=== PATIENT | female | born 1985 | race Caucasian/White ===

== ENCOUNTER 2024-05-12 10:07 | Emergency (ER) | payer BC ==
[2024-05-12 10:15] VITALS: TEMP 97.9
--- NOTE | 2024-05-12 10:36 | ED ---
General Adult HPI - General Chief complaint: Vaginal Bleeding Stated complaint: Vaginal bleeding-8/9 weeks preg Time Seen by Provider: 05/12/24 10:17 Source: patient, RN notes reviewed Mode of arrival: ambulatory Limitations: no limitations - History of Present Illness Initial comments: 38-year-old female presents emergency department with chief complaint of vaginal bleeding early . Patient is G2, approximately 8 to 9 weeks . Patient states that she has some brown to bloody discharge last night but woke up with more spotting today bright red. She has no abdominal pain or cramping. Denies any trauma. Patient states that she had no bleeding with her prior she does not remember receiving RhoGAM before. Patient has no dysuria. - Related Data Allergies Allergy/AdvReac Type Severity Reaction Status Date / Time No Known Allergies Allergy Verified 05/12/24 10:15 Review of Systems ROS Statement: Those systems with pertinent positive or pertinent negative responses have been documented in the HPI. ROS Other: All systems not noted in ROS Statement are negative. Past Medical History Past Medical History: No Reported History Past Surgical History: Section Smoking Status: Current every day smoker General Exam Limitations: no limitations General appearance: alert, in no apparent distress Head exam: Present: atraumatic, normocephalic, normal inspection Eye exam: Present: normal appearance, PERRL, EOMI. Absent: scleral icterus, conjunctival injection, periorbital swelling ENT exam: Present: normal exam, normal oropharynx, mucous membranes moist Neck exam: Present: normal inspection, full ROM. Absent: tenderness, meningismu s, lymphadenopathy Respiratory exam: Present: normal lung sounds bilaterally. Absent: respiratory distress, wheezes, rales, rhonchi, stridor Cardiovascular Exam: Present: regular rate, normal rhythm, normal heart sounds. Absent: systolic murmur, diastolic murmur, rubs, gallop, clicks GI/Abdominal exam: Present: soft, normal bowel sounds. Absent: distended, tenderness, guarding, rebound, rigid Back exam: Absent: CVA tenderness (R), CVA tenderness (L) Course Vital Signs 05/12/24 05/12/24 10:12 12:10 Temperature 97.9 F Pulse Rate 66 69 Respiratory 16 18 Rate Blood Pressure 134/82 110/74 O2 Sat by Pulse 98 97 Oximetry Medical Decision Making - Medical Decision Making Was pt. sent in by a medical professional or institution (NESSA Rothman, MANAGER ASSET MANAGEMENT, urgent care, hospital, or longterm...) When possible be specific @ -No Did you speak to anyone other than the patient for history (EMS, parent, family, police, friend...)? What history was obtained from this source @ -No Did you review nursing and triage notes (agree or disagree)? Why? @ -I reviewed and agree with nursing and triage notes Were old charts reviewed (outside hosp., previous admission, EMS record, old EKG, old radiological studies, urgent care reports/EKG's, longterm records)? Report findings @ -No old charts were reviewed Differential Diagnosis (chest pain, altered mental status, abdominal pain women, abdominal pain men, vaginal bleeding, weakness, fever, dyspnea, syncope, headache, dizziness, GI bleed, back pain, seizure, CVA, palpatations, mental health, musculoskeletal)? @ -Differential Vaginal Bleeding: Spontaneous , threatened , molar , ectopic , bloody show, incompetent cervix, abruptioplacenta, placenta previa, uterine rupture, dysfunctional uterine bleeding, hemorrhage, uterine fibroids, this is not meant to be an all-inclusive list. EKG interpreted by me (3pts min.). @ -None X-rays interpreted by me (1pt min.). @ -None done CT interpreted by me (1pt min.). @ -None done U/S interpreted by me (1pt. min.). @ -Ultrasound OB transvaginal shows no IUP considered miscarriage or blighted ovum What testing was considered but not performed or refused? (CT, X-rays, U/S, labs)? Why? @ -None What meds were considered but not given or refused? Why? @ -None Did you discuss the management of the patient with other professionals (professionals i.e. NESSA Rothman, MANAGER ASSET MANAGEMENT, lab, RT, psych nurse, clinical social work therapist, client architect, teacher, strategic intelligence officer, rn case manager hospice)? Give summary @ -No Was smoking cessation discussed for >3mins.? @ -No Was critical care preformed (if so, how long)? @ -No Were there social determinants of health that impacted care today? How? (Homelessness, low income, unemployed, alcoholism, drug addiction, transportation, low edu. Level, literacy, decrease access to med. care, detention, rehab)? @ -No Was there de-escalation of care discussed even if they declined (Discuss DNR or withdrawal of care, Hospice)? DNR status @ -No What co-morbidities impacted this encounter? (DM, HTN, Smoking, COPD, CAD, Cancer, CVA, ARF, Chemo, Hep., AIDS, mental health diagnosis, sleep apnea, morbid obesity)? @ -None Was patient admitted / discharged? Hospital course, mention meds given and route, prescriptions, significant lab abnormalities, going to OR and other pertinent info. @ -Discharge patient presented for vaginal bleeding in early . Patient may be earlier than expected versus threatened miscarriage felt possibly to be ectopic though still concerned as patient has no abdominal pain she was advised to return for any pain in her abdomen, cramping or worsening bleeding. Undiagnosed new problem with uncertain prognosis? @ -No Drug Therapy requiring intensive monitoring for toxicity (Heparin, Nitro, Insulin, Cardizem)? @ -No Were any procedures done? @ -No Diagnosis/symptom? @Threatened miscarriage Acute, or Chronic, or Acute on Chronic? @ -Acute Uncomplicated (without systemic symptoms) or Complicated (systemic symptoms)? @ -Uncomplicated Side effects of treatment? @ -No Exacerbation, Progression, or Severe Exacerbation? @ -No Poses a threat to life or bodily function? How? (Chest pain, [place], [place], pneumonia, PE, COPD, DKA, ARF, appy, cholecystitis, CVA, Diverticulitis, Homicidal, Suicidal, threat to staff... and all critical care pts) @ -No - Lab Data Result diagrams: 05/12/24 10:45 05/12/24 10:45 Lab Results 05/12/24 05/12/24 05/12/24 Range/Units 10:37 10:45 10:45 WBC 7.1 (3.8-10.6) k/uL RBC 4.81 (3.80-5.40) m/uL Hgb 13.9 (11.4-16.0) gm/dL Hct 43.4 (34.0-46.0) % MCV 90.2 (80.0-100.0) fL MCH 28.8 (25.0-35.0) pg MCHC 32.0 (31.0-37.0) g/dL RDW 15.8 H (11.5-15.5) % Plt Count 203 (150-450) k/uL MPV 8.6 Neutrophils % 70 % Lymphocytes % 19 % Monocytes % 5 % Eosinophils % 3 % Basophils % 0 % Neutrophils # 5.0 (1.3-7.7) k/uL Lymphocytes # 1.4 (1.0-4.8) k/uL Monocytes # 0.4 (0-1.0) k/uL Eosinophils # 0.2 (0-0.7) k/uL Basophils # 0.0 (0-0.2) k/uL Sodium 139 (137-145) mmol/L Potassium 4.2 (3.5-5.1) mmol/L Chloride 109 H (98-107) mmol/L Carbon Dioxide 22 (22-30) mmol/L Anion Gap 8 mmol/L BUN 12 (7-17) mg/dL Creatinine 0.64 (0.52-1.04) mg/dL Est GFR (CKD-EPI)AfAm >90 (>60 ml/min/1.73 sqM) Est GFR (CKD-EPI)NonAf >90 (>60 ml/min/1.73 sqM) Glucose 87 (74-99) mg/dL Calcium 9.0 (8.4-10.2) mg/dL HCG, Quant 80897.2 mIU/mL Urine Color Colorless Urine Appearance Clear (Clear) Urine pH 6.5 (5.0-8.0) Ur Specific [place] 1.003 (1.001-1.035) Urine Protein Negative (Negative) Urine Glucose (UA) Negative (Negative) Urine Ketones Negative (Negative) Urine Blood Moderate H (Negative) Urine Nitrite Negative (Negative) Urine Bilirubin Negative (Negative) Urine Urobilinogen <2.0 (<2.0) mg/dL Ur Leukocyte Esterase Negative (Negative) Urine RBC 1 (0-5) /hpf Urine WBC 1 (0-5) /hpf Ur Squamous Epith Cells <1 (0-4) /hpf Urine Bacteria Rare H (None) /hpf Blood Type Blood Type Recheck Bld Type Recheck Status 05/12/24 Range/Units 10:45 WBC (3.8-10.6) k/uL RBC (3.80-5.40) m/uL Hgb (11.4-16.0) gm/dL Hct (34.0-46.0) % MCV (80.0-100.0) fL MCH (25.0-35.0) pg MCHC (31.0-37.0) g/dL RDW (11.5-15.5) % Plt Count (150-450) k/uL MPV Neutrophils % % Lymphocytes % % Monocytes % % Eosinophils % % Basophils % % Neutrophils # (1.3-7.7) k/uL Lymphocytes # (1.0-4.8) k/uL Monocytes # (0-1.0) k/uL Eosinophils # (0-0.7) k/uL Basophils # (0-0.2) k/uL Sodium (137-145) mmol/L Potassium (3.5-5.1) mmol/L Chloride (98-107) mmol/L Carbon Dioxide (22-30) mmol/L Anion Gap mmol/L BUN (7-17) mg/dL Creatinine (0.52-1.04) mg/dL Est GFR (CKD-EPI)AfAm (>60 ml/min/1.73 sqM) Est GFR (CKD-EPI)NonAf (>60 ml/min/1.73 sqM) Glucose (74-99) mg/dL Calcium (8.4-10.2) mg/dL HCG, Quant mIU/mL Urine Color Urine Appearance (Clear) Urine pH (5.0-8.0) Ur Specific [place] (1.001-1.035) Urine Protein (Negative) Urine Glucose (UA) (Negative) Urine Ketones (Negative) Urine Blood (Negative) Urine Nitrite (Negative) Urine Bilirubin (Negative) Urine Urobilinogen (<2.0) mg/dL Ur Leukocyte Esterase (Negative) Urine RBC (0-5) /hpf Urine WBC (0-5) /hpf Ur Squamous Epith Cells (0-4) /hpf Urine Bacteria (None) /hpf Blood Type A Positive Blood Type Recheck No Previous Record Bld Type Recheck Status [facility] ONLY Disposition Clinical Impression: Threatened miscarriage in early Disposition: HOME SELF-CARE Instructions (If sedation given, give patient instructions): Threatened Miscarriage (ED) Additional Instructions: Please return to the Emergency Department if symptoms worsen or any other concerns. Is patient prescribed a controlled substance at d/c from ED?: No Referrals: Paola Pate DO [Primary Care Provider] - 1-2 days Time of Disposition: 12:24
[2024-05-12 10:54] LABS: Basophils % (A) 0 %; Eosinophils # (A) 0.2 k/uL (0-0.7); Eosinophils % (A) 3 %; HCT 43.4 % (34.0-46.0); HGB 13.9 gm/dL (11.4-16.0); Lymphocytes # (A) 1.4 k/uL (1.0-4.8); Lymphocytes % (A) 19 %; MCH 28.8 pg (25.0-35.0); MCV 90.2 fL (80.0-100.0); Mean Platelet Volume 8.6; Monocytes # (A) 0.4 k/uL (0-1.0); Monocytes % (A) 5 %; Neutrophils % (A) 70 %; Platelet Count 203 k/uL (150-450); RBC 4.81 m/uL (3.80-5.40); RDW 15.8 % (11.5-15.5); WBC 7.1 k/uL (3.8-10.6)
[2024-05-12 11:02] LABS: African American GFR (CKD) >90 (>60 ml/min/1.73 sqM); Anion Gap 8 mmol/L; Blood Urea Nitrogen 12 mg/dL (7-17); Carbon Dioxide 22 mmol/L (22-30); Chloride 109 mmol/L (98-107); Glucose 87 mg/dL (74-99); Non-African American GFR(CKD) >90 (>60 ml/min/1.73 sqM); Potassium 4.2 mmol/L (3.5-5.1); Sodium 139 mmol/L (137-145)
[2024-05-12 11:36] LABS: Appearance,Urine Clear (Clear); Bacteria,Urine Rare /hpf; Bilirubin,Urine Negative (Negative); Blood,Urine Moderate (Negative); Color,Urine Colorless; Glucose,Urine (UA) Negative (Negative); Ketones,Urine Negative (Negative); Leukocyte Esterase,Urine Negative (Negative); Nitrite,Urine Negative (Negative); PH, Urine 6.5 (5.0-8.0); Protein,Urine Negative (Negative); RBC,Urine 1 /hpf (0-5); Specific Gravity,Urine 1.003 (1.001-1.035); Squamous Epithelial Cell,Urine <1 /hpf (0-4); Urobilinogen,Urine <2.0 mg/dL (<2.0); WBC,Urine 1 /hpf (0-5)
--- NOTE | 2024-05-12 11:38 | US ---
EXAMINATION TYPE: Transabdominal DATE OF EXAM: 05/12/2024 11:24 AM COMPARISON: NONE CLINICAL INDICATION: Female, 38 years old with history of pain, bleeding; Cramping and bleeding EXAM PERFORMED: Transvaginal (TV) and Transabdominal (TA) EXAM MEASUREMENTS: GESTATIONAL AGE / DATING Physician Established: Not yet established Dates by LMP: LMP unknown Dates by First Scan: No previous this is first scan Dates by Current Scan for: MSD ( 6 weeks/3 days) EDC: 01/02/2025 MATERNAL ANATOMY Uterus: 9.7 x 5.9 x 6.9cm Right Ovary: 2.9 x 2.0 x 1.8cm Left Ovary: 3.7 x 3.2 x 2.1cm Post CDS / Adnexa: wnl Presence of free fluid: no Presence of corpus luteal cyst: not seen Presence of subchorionic bleed: no GESTATION / SURVEY MSD: 1.5cm (6 weeks/3 days) No pole or yolk sac seen at this time Date of LMP: Unknown Beta HcG (if available): Not available at time of exam IMPRESSION: 1. Findings could reflect normal early IUP versus missed spontaneous , blighted . Ec topic cannot be excluded. Correlate with serial beta hCG and/or ultrasound
[2024-05-12 11:47] LABS: HCG,Quantitative Serum 27871.2 mIU/mL
[2024-05-12 12:12] VITALS: BP 110/74; PULSE 69; RESP 18
== END 2024-05-12 12:11 | disposition home or self-care (01) ==
LOC: EC 10:07
DX: O09.91 Supervision of high risk pregnancy, unspecified, first trimester (principal); O20.0 Threatened abortion; O99.331 Smoking (tobacco) complicating pregnancy, first trimester; F17.200 Nicotine dependence, unspecified, uncomplicated; Z3A.01 Less than 8 weeks gestation of pregnancy
CPT/HCPCS: 36415; 76801; 76817; 80048; 81001; 84702; 85025; 86900; 86901; 99284

== ENCOUNTER → 2024-05-23 | Outpatient (CLI) | payer BC ==
[2024-05-23 11:37] LABS: Hypochromasia Slight; MCH 28.2 pg (25.0-35.0); MCHC 31.1 g/dL (31.0-37.0); MCV 90.6 fL (80.0-100.0); Mean Platelet Volume 8.8; Platelet Count 253 k/uL (150-450); RBC 4.97 m/uL (3.80-5.40); RDW 15.7 % (11.5-15.5); WBC 7.4 k/uL (3.8-10.6)
== END | disposition home or self-care (01) ==
LOC: LABWHC1 11:10
PROVIDERS: ATTEND Obstetrics & Gynecology
DX: O03.9 Complete or unspecified spontaneous abortion without complication (principal)
CPT/HCPCS: 36415; 84702; 85027

== ENCOUNTER 2025-05-19 03:43 | Inpatient (IN) | payer BC ==
[2025-05-19] MEDS ORDERED: OXYTOCIN 10 UNIT/ML 1 ML VIAL IM PRN (04:12)
[2025-05-19] MEDS ORDERED: CARBOPROST TROMETHAMINE 250 MCG/ML 1 ML AMP IM PRN (04:12)
[2025-05-19] MEDS ORDERED: METHYLERGONOVINE 0.2 MG/ML 1 ML AMP IM PRN (04:12)
[2025-05-19] MEDS ORDERED: TRANEXAMIC 1,000 MG/100ML-NACL 1,000 MG in EMPTY BAG 1 BAG IV PRN (04:12)
[2025-05-19] MEDS ORDERED: OXYTOCIN 30 UNITS/500 ML NS 30 UNIT in SALINE 1 500ML.BAG IV SCH (04:15)
[2025-05-19 04:33] LABS: Glucose,Whole Blood 96 mg/dL (70-110)
[2025-05-19 04:34] LABS: Basophils # (A) 0.03 10*3/uL (0.00-0.10); Basophils % (A) 0.3 %; Eosinophils # (A) 0.17 10*3/uL (0.04-0.35); Eosinophils % (A) 1.5 %; HCT 34.0 % (37.2-46.3); HGB 10.9 g/dL (12.0-15.0); Lymphocytes # (A) 1.65 10*3/uL (0.90-5.00); Lymphocytes % (A) 14.6 %; MCH 27.0 pg (27.0-32.0); MCHC 32.1 g/dL (32.0-37.0); MCV 84.2 fL (80.0-97.0); Monocytes # (A) 0.66 10*3/uL (0.20-1.00); Monocytes % (A) 5.8 %; Neutrophils # (A) 8.63 10*3/uL (1.80-7.70); Neutrophils % (A) 76.5 %; Platelet Count 195 10*3/uL (140-440); RBC 4.04 10*6/uL (4.10-5.20); RDW 14.6 % (11.5-14.5); WBC 11.29 10*3/uL (4.50-10.00)
[2025-05-19] MEDS: CITRIC ACID-SODIUM CITRATE 15 ML CUP PO ONE (04:35)
[2025-05-19] MEDS: LACTATED RINGERS 1,000 ML IV ONE (04:37)
[2025-05-19] MEDS ORDERED: ONDANSETRON 4 MG/2 ML VIAL ONE (04:48)
[2025-05-19] MEDS ORDERED: MORPHINE SULFATE (PF) 0.3 MG/0.3 ML SYR ONE (04:48)
[2025-05-19] MEDS ORDERED: ePHEDrine 50 MG/ML 1 ML VIAL ONE (04:48)
[2025-05-19] MEDS ORDERED: NALBUPHINE (ANES) 10 MG/ML - 1 ML AMP ONE (04:48)
[2025-05-19] MEDS ORDERED: OXYTOCIN 30 UNITS/500 ML NS BAG IV ONE (04:48)
--- NOTE | 2025-05-19 05:46 | P.OP ---
Date of Procedure: 05/19/25 Preoperative Diagnosis: IUP at 39 and 1 sevenths weeks, GDM, history of section x 1 desires repeat, family-planning Postoperative Diagnosis: Same Procedure(s) Performed: Repeat section with bilateral salpingectomy Anesthesia: spinal Surgeon: Teresita Alcaraz Securities Attorney #1: Amanda Villanueva Estimated Blood Loss (ml): 648 IV fluids (ml): 1,000 Urine output (ml): 200 (Yellow) Pathology: none sent Condition: stable Disposition: observation Indications for Procedure: 39-year-old G3, P1 at 39 and 1 sevenths weeks presents in active labor. Patient has a prior history of section and desires repeat. Patient desires bilateral salpingectomy as she is done with childbearing Operative Findings: Viable male delivered 512, weight of 9 pounds 2 ounces, Apgars of 8 and 9 at 1 and 5 minutes respectively Description of Procedure: The patient was prepped and draped in the usual fashion after spinal anesthesia was administered by the anesthesia department. A Pfannenstiel incision was made and extended of the abdominal cavity without difficulty. The bladder peritoneum was elevated and incised and reflected distally. A 2 cm incision was made in the transverse plane of the lower uterine segment to enter the uterus at which time clear fluid was noted. The incision was extended in both directions using the bandage scissors. The head was encountered within the field and delivered up and through the incision where the nose and mouth were thoroughly suctioned. Remainder of the was delivered onto the surgical field where the cord was doubly clamped, cut, and the was passed for resuscitative measures with weight and Apgars as noted above. The placenta was delivered manually, intact, and was grossly normal with a grossly normal three-vessel cord. The uterus was exteriorized and the interior cavity of the uterus swept of any remaining placental and membranous fragments with a laparotomy sponge. The margins of the incision were grasped with Allis clamps and the incision closed in 2 layers. First layer was a running locking layer of 0 Vicryl from margin to margin. Any small points of bleeding were then made hemostatic with the Bovie. Once hemostasis was achieved, the posterior cul-de-sac was suctioned with a guard and the uterine and ovarian findings are as noted above. The left fallopian tube was elevated and the mesosalpinx was transected up to the corneal region with the LigaSure, this was then repeated on the opposite side. Hemostasis was noted after bilateral salpingectomy was performed. The uterus was replaced within the abdominal cavity and the gutters swept of any remaining blood fluid or clot. The incision was again reexamined and hemostasis was noted to be excellent. Any small point of bleeding were made hemostatic with the Bovie. Once hemostasis was achieved the parietal peritoneum was loosely reapproximated. The layer of muscles were examined and made hemostatic with the Bovie. Attention was then turned to the fascia which was closed with 2 running stitches of 0 Vicryl proceeding from the lateral margins to the midpoint. The subcutaneous tissues were irrigated, made hemostatic with the Bovie, and reapproximated with a running stitch of 30 Vicryl. The skin was reapproximated with 4-0 Vicryl. Estimated blood loss for the case was approximately 648 mL. All sponge instrument and needle counts are correct. There were no complications. The patient tolerated the procedure well and proceeded to the recovery room in stable condition. Both mother and are resting comfortably in recovery.
[2025-05-19] MEDS ORDERED: METOCLOPRAMIDE 5 MG/ML 2 ML VIAL IVP PRN (05:53)
[2025-05-19] MEDS ORDERED: diphenhydrAMINE 25 MG CAP PO PRN (05:53)
[2025-05-19] MEDS ORDERED: diphenhydrAMINE 50 MG/ML 1 ML VIAL IVP PRN ×2 (05:53)
[2025-05-19] MEDS ORDERED: ZOLPIDEM 5 MG TAB PO PRN (05:53)
[2025-05-19] MEDS ORDERED: ONDANSETRON 4 MG/2 ML VIAL IVP PRN (05:53)
[2025-05-19] MEDS ORDERED: NALOXONE 0.4 MG/ML 1 ML VIAL IV PRN (05:53)
[2025-05-19] MEDS: ACETAMINOPHEN IV (For NPO) 1,000 MG in EMPTY BAG 1 BAG IVPB ONE (07:38)
[2025-05-19] MEDS: LACTATED RINGERS 1,000 ML IV SCH ×2 (10:16→19:35)
--- NOTE | 2025-05-19 12:56 | P.HPOB ---
History of Present Illness H&P Date: 05/19/25 Chief Complaint: IUP at 39 and 1/7 weeks,active labor, history of section x 1,GDM 39-year-old G3, P1011 at 39 and 1 sevenths weeks that presents to labor and delivery with complaints of regular painful contractions. Patient is noted to be 5 cm in OB triage. Patient has been receiving routine care which has been complicated by diagnosis of gestational diabetes, and LGA last EFW 97th percentile about 1 week ago. Patient notes good movement denies vaginal bleeding or loss of fluid. Review of Systems Constitutional: Denies chills, Denies fatigue, Denies fever Ears, nose, mouth and throat: Denies headache Cardiovascular: Reports leg edema Respiratory: Denies dyspnea Gastrointestinal: Denies nausea, Denies vomiting Genitourinary: Reports Medications and Allergies Allergies Allergy/AdvReac Type Severity Reaction Status Date / Time No Known Allergies Allergy Verified 05/19/25 03:51 Exam Osteopathic Statement: *. No significant issues noted on an osteopathic structural exam other than those noted in the History and Physical/Consult. Intake and Output 05/18/25 05/18/25 05/19/25 14:59 22:59 06:59 Other: Weight 121.563 kg Targeted physical exam is performed this date in general is a well-nourished well-developed female in no acute distress, breathing is nonlabored, abdomen is gravid, cervical exam per RN is 5/80/-1 station vertex presentation next heart tones are noted to be category 1 and she is chang every 3 to 6 minutes. Results Result Diagrams: 05/19/25 04:15 Assessment and Plan (1) Term Current Visit: Yes Status: Acute Code(s): Z34.90 - ENCNTR FOR SUPRVSN OF NORMAL , UNSP, UNSP TRIMESTER SNOMED Code(s): 73725504 (2) GDM (gestational diabetes mellitus) Current Visit: Yes Status: Acute Code(s): O24.419 - GESTATIONAL DIABETES MELLITUS IN , UNSP CONTROL SNOMED Code(s): 13370129 (3) History of section Current Visit: Yes Status: Acute Code(s): Z98.891 - HISTORY OF UTERINE SCAR FROM PREVIOUS SURGERY SNOMED Code(s): 848511627 (4) Declines (vaginal after ) trial Current Visit: Yes Status: Acute Code(s): O34.219 - MATERNAL CARE FOR UNSP TYPE SCAR FROM PREVIOUS DEL SNOMED Code(s): 455810134 Plan: Admit to labor and delivery Anesthesia to be notified Patient desires bilateral salpingectomy with repeat section Surgery is reviewed and questions were answered risks are discussed. Patient states understanding and wishes to proceed. Will proceed to operating suite
--- NOTE | 2025-05-19 15:30 | P.ANPRN ---
Procedure Note - Anesthesia - Nerve Block Performed Right Adductor Canal Infusion Time Out Performed: Yes Date of Procedure: 05/19/25 Procedure Start Time: 06:51 Procedure Stop Time: 07:01 Location of Patient: PreOp Indication: Acute Post-Operative Pain, Requested by Surgeon Sedation Type: Sedate with meaningful contact maintained Preparation: Sterile Prep, Sterile Dressing Position: Supine Catheter: Indwelling Needle Types: Pajunk Needle Gauge: 21 Ultrasound used to visualize needle placement: Yes Ultrasound used to observe medication spread: Yes Blood Aspirated: No Pain Paresthesia on Injection Noted: No Resistance on Injection: Normal Image Stored and Saved: Yes Events: Uneventful and Well Tolerated (Ropivacaine 0.5% 20 cc plus dexamethasone 4 mg)
--- NOTE | 2025-05-19 15:31 | P.ANPRN ---
Procedure Note - Anesthesia - Nerve Block Performed Right iPack Single Time Out Performed: Yes Date of Procedure: 05/19/25 Procedure Start Time: 07:02 Procedure Stop Time: 07:03 Location of Patient: PreOp Indication: Acute Post-Operative Pain, Requested by Surgeon Sedation Type: Sedate with meaningful contact maintained Preparation: Sterile Prep Position: Left Lateral Needle Types: Pajunk Needle Gauge: 21 Ultrasound used to visualize needle placement: Yes Ultrasound used to observe medication spread: Yes Blood Aspirated: No Pain Paresthesia on Injection Noted: No Resistance on Injection: Normal Image Stored and Saved: Yes Events: Uneventful and Well Tolerated (Ropivacaine 0.5% 20 cc plus dexamethasone 4 mg)
[2025-05-19] MEDS: IBUPROFEN IV 800 MG in SODIUM CHLORIDE 0.9% 250 ML IV ONE (16:19)
[2025-05-19] MEDS: SENNOSIDES-DOCUSATE SODIUM 1 EACH TAB PO SCH (19:35)
[2025-05-19] MEDS: ACETAMINOPHEN TAB 500 MG TAB PO SCH (19:35)
[2025-05-20] MEDS: IBUPROFEN 800 MG TAB PO SCH (00:10)
[2025-05-20 07:29] LABS: Basophils # (A) 0.03 10*3/uL (0.00-0.10); Basophils % (A) 0.3 %; Eosinophils # (A) 0.18 10*3/uL (0.04-0.35); Eosinophils % (A) 1.8 %; HCT 31.1 % (37.2-46.3); HGB 9.8 g/dL (12.0-15.0); Lymphocytes # (A) 1.59 10*3/uL (0.90-5.00); Lymphocytes % (A) 15.8 %; MCH 26.9 pg (27.0-32.0); MCHC 31.5 g/dL (32.0-37.0); MCV 85.4 fL (80.0-97.0); Monocytes # (A) 0.51 10*3/uL (0.20-1.00); Monocytes % (A) 5.1 %; Neutrophils # (A) 7.68 10*3/uL (1.80-7.70); Neutrophils % (A) 76.2 %; Platelet Count 190 10*3/uL (140-440); RBC 3.64 10*6/uL (4.10-5.20); RDW 14.6 % (11.5-14.5); WBC 10.07 10*3/uL (4.50-10.00)
[2025-05-20] MEDS ORDERED: IBUPROFEN 800 MG TAB PO SCH (08:00)
--- NOTE | 2025-05-20 08:33 | P.PNOBGPC ---
Subjective - Subjective Principal diagnosis: Postop day 1, repeat section with bilateral salpingectomy Interval history: Patient is doing well postoperatively. She is ambulating and voiding without difficulty. She is tolerating regular diet without nausea or vomiting. States her pain is well-controlled. She denies concerns this morning. Patient reports: Reports appetite normal, Reports voiding normally, Reports pain well controlled, Reports ambulating normally [place]: doing well Objective - Vital Signs Latest vital signs: Vital Signs Temp Pulse Resp BP Pulse Ox 05/20/25 07:43 97.8 F 60 16 129/81 05/20/25 00:00 97.6 F 57 L 16 117/69 98 05/19/25 16:00 97.7 F 60 16 110/67 98 05/19/25 12:00 97.8 F 70 16 125/81 Intake and Output 05/19/25 05/20/25 05/20/25 22:59 06:59 14:59 Output Total 1700 500 Balance -1700 -500 Output: Urine 1700 500 Other: Voiding Method Indwelling Catheter Toilet - Exam Extremities: Present: normal, edema Abdomen: Present: normal appearance, soft Incision: Present: normal, dry, intact Uterus: Present: normal, firm - Labs Labs: Abnormal Lab Results - Last 24 Hours (Table) 05/20/25 Range/Units 06:57 WBC 10.07 H (4.50-10.00) 10*3/uL RBC 3.64 L (4.10-5.20) 10*6/uL Hgb 9.8 L (12.0-15.0) g/dL Hct 31.1 L (37.2-46.3) % MCH 26.9 L (27.0-32.0) pg MCHC 31.5 L (32.0-37.0) g/dL Immature Gran # 0.08 H (0.00-0.04) 10*3/uL Assessment and Plan (1) Term Current Visit: Yes Status: Acute Code(s): Z34.90 - ENCNTR FOR SUPRVSN OF NORMAL , UNSP, UNSP TRIMESTER SNOMED Code(s): 03226373 (2) GDM (gestational diabetes mellitus) Current Visit: Yes Status: Acute Code(s): O24.419 - GESTATIONAL DIABETES MELLITUS IN , UNSP CONTROL SNOMED Code(s): 98372053 (3) History of section Current Visit: Yes Status: Acute Code(s): Z98.891 - HISTORY OF UTERINE SCAR FROM PREVIOUS SURGERY SNOMED Code(s): 043265272 (4) Declines (vaginal after ) trial Current Visit: Yes Status: Acute Code(s): O34.219 - MATERNAL CARE FOR UNSP TYPE SCAR FROM PREVIOUS DEL SNOMED Code(s): 815372545 (5) Status post section Current Visit: Yes Status: Acute Code(s): Z98.891 - HISTORY OF UTERINE SCAR FROM PREVIOUS SURGERY SNOMED Code(s): 990318995 Plan: Patient is doing well postoperatively. Plan to continue routine postoperative care and anticipate discharge home tomorrow
--- NOTE | 2025-05-20 08:53 | P.PN ---
Progress Note - Text Progress Note Date: 05/20/25 Postoperative day 1 status post section under spinal anesthesia, and intrathecal morphine given for postoperative analgesia, patient doing well, there is no anesthesia related complications, Patient had no headache, vital signs stable , Assessment and plan= postop day 1 status post , doing well there is no anesthesia related complication.
[2025-05-21] MEDS: SIMETHICONE 80 MG CHEWABLE PO PRN (00:07)
[2025-05-21 10:01] VITALS: BP 124/75; PULSE 75; RESP 16; TEMP 98.2
--- NOTE | 2025-05-21 12:23 | P.DS ---
Providers Date of admission: 05/19/25 04:02 Expected date of discharge: 05/21/25 Attending physician: Teresita Alcaraz Primary care physician: Stated None - Discharge Diagnosis(es) (1) Term Current Visit: Yes Status: Acute (2) GDM (gestational diabetes mellitus) Current Visit: Yes Status: Acute (3) History of section Current Visit: Yes Status: Acute (4) Declines (vaginal after ) trial Current Visit: Yes Status: Acute (5) Status post section Current Visit: Yes Status: Acute Hospital Course: This is a 39-year-old 3 now para 2-0-1-2 that presented to labor and delivery on 05/19 with complaints of regular painful contractions. Patient was noted to be 5 cm. For full details on the patient please see the dictated history and physical. Patient was scheduled for repeat section the following day. Patient was admitted to labor and delivery and taken back to the operating room where repeat section with bilateral salpingectomy was performed without difficulty. Patient delivered a viable male infant at 0512 on 05/19 weight of 9 pounds 2 ounces, Apgars of 8 and 9 at 1 and 5 minutes respectively. For full details on the please see the dictated operative report Patient's postoperative course has been uneventful. And is postoperative day #2 she is ambulating and voiding without difficulty. She is tolerating a regular diet without nausea or vomiting. States her pain is well-controlled. She denies concerns. She would like discharge home. Patient Condition at Discharge: Good Plan - Discharge Summary New Discharge Prescriptions: No Action No Known Home Medications Discharge Medication List No Known Home Medications 05/20/25 [History] Follow up Appointment(s)/Referral(s): Teresita Alcaraz DO [Doctor of Osteopathic Medicine] - 06/04/25 1:45 pm (Post Appointment 07-01-2025 at 1:15pm) Patient Instructions/Handouts: (DC), (GEN) Activity/Diet/Wound Care/Special Instructions: No tub baths or intercourse until 6 weeks . [id number]-[id number] ibuprofen 600 mg or 3 tablets every 6 hours as needed for pain. Routine postoperative check in 2 weeks. Should she have any concerns prior to his appointment she is urged to call the office and be seen prior Discharge Disposition: HOME SELF-CARE
== END 2025-05-21 12:15 | disposition home or self-care (01) | DRG 785 ==
LOC: FBPOP 03:43 → 4FBP 04:02 → MERGE 04:02
PROVIDERS: ADMIT Obstetrics & Gynecology Obstetrics; ATTEND Obstetrics & Gynecology Obstetrics
PROC: 0UB70ZZ Excision of Bilateral Fallopian Tubes, Open Approach (ICD-10-PCS; 2025-05-19)
PROC: 10D00Z1 Extraction of Products of Conception, Low, Open Approach (ICD-10-PCS; principal; 2025-05-19 05:00)
DX: O34.211 Maternal care for low transverse scar from previous cesarean delivery (principal); N85.8 Other specified noninflammatory disorders of uterus; O24.429 Gestational diabetes mellitus in childbirth, unspecified control; O36.63X0 Maternal care for excessive fetal growth, third trimester, not applicable or unspecified; Z37.0 Single live birth; Z3A.39 39 weeks gestation of pregnancy; Z30.2 Encounter for sterilization
CPT/HCPCS: 85025; 86850; 86900; 86901; 88302; 99213